=== PATIENT | female | born 1990 | race Caucasian/White ===

== ENCOUNTER 2017-04-21 14:07 | Emergency (ER) | payer MEDICAID ==
[~2017-04-21] VITALS: Ht 162.6 cm; Wt 57.8 kg
[2017-04-21 14:08] VITALS: BP 104/65
== END 2017-04-21 14:33 | disposition home or self-care (01) ==
LOC: ED 14:32
DX: K08.89 Other specified disorders of teeth and supporting structures (principal)
CPT/HCPCS: 99283

== ENCOUNTER 2020-05-23 17:55 | Emergency (ER) | payer MEDICAID ==
[~2020-05-23] VITALS: Ht 162.6 cm; Wt 53.7 kg
[2020-05-23] MEDS ORDERED: AMOXICILLIN 500 MG CAPSULE ONE (19:07)
[2020-05-23] MEDS ORDERED: KETOROLAC 30 MG/1 ML ONE (19:08)
[2020-05-23] MEDS ORDERED: HYDROcodone/APAP 5/325 TABLET ONE (19:08)
--- NOTE | 2020-05-23 19:17 | NUR ---
PT MEDICATED PER ERP ORDER FOR 10 DENTAL PAIN. BP CUFF, PULSE OX IN PLACE, CALL LIGHT WITHIN REACH, WARM BLANKET PROVIDED.
[2020-05-23] MEDS ORDERED: KETOROLAC 30 MG/1 ML IM ONE (19:30)
[2020-05-23] MEDS ORDERED: HYDROcodone/APAP 5/325 TABLET PO ONE (19:30)
[2020-05-23] MEDS ORDERED: AMOXICILLIN 500 MG CAPSULE PO ONE (19:30)
[2020-05-23 19:49] VITALS: BP 122/61
== END 2020-05-23 19:51 | disposition home or self-care (01) ==
LOC: ED 19:29
DX: K04.7 Periapical abscess without sinus (principal)
CPT/HCPCS: 96372; 99283; J1885

== ENCOUNTER 2020-05-24 04:32 | Emergency (ER) | payer MEDICAID ==
[~2020-05-24] VITALS: Ht 162.6 cm; Wt 54.0 kg
--- NOTE | 2020-05-24 05:17 | NUR ---
pt states that she was here yesterday for left sided dental pain. States "i was given a shot and it was supposed to help for a few days but it isnt and i woke up a bunch last night." pt nad, vss, gross neuro intact. waiting for erp eval. placd on spo2/bp monitoring, wctm.
[2020-05-24] MEDS ORDERED: KETOROLAC 60 MG/2 ML ONE (05:21)
[2020-05-24] MEDS ORDERED: ONDANSETRON ODT 4 MG ONE (05:21)
[2020-05-24] MEDS ORDERED: OXYcodone/APAP 10/325MG TABLET ONE (05:22)
[2020-05-24 05:26] VITALS: BP 102/48
--- NOTE | 2020-05-24 05:26 | NUR ---
pt medicated per dec for pain, tolerated well. laying on preet. lashaun, tk.
[2020-05-24] MEDS ORDERED: KETOROLAC 30 MG/1 ML IM ONE (05:30)
[2020-05-24] MEDS ORDERED: OXYcodone/APAP 10/325MG TABLET PO ONE (05:30)
[2020-05-24] MEDS ORDERED: ONDANSETRON ODT 4 MG PO ONE (05:30)
--- NOTE | 2020-05-24 06:03 | NUR ---
Patient given discharge instructions and they have confirmed that they understand the instructions. Patient ambulatory with steady gait. NAD, DENIES ADDITIONAL QUESTIONS OR NEEDS, STATES PAIN IS DECREASED AFTER MEDICATIONS.
== END 2020-05-24 06:04 | disposition home or self-care (01) ==
LOC: ED 05:29
DX: K08.89 Other specified disorders of teeth and supporting structures (principal)
CPT/HCPCS: 96372; 99283; J1885; Q0162

== ENCOUNTER 2020-07-30 19:11 | Emergency (ER) | payer MEDICAID ==
[~2020-07-30] VITALS: Ht 162.6 cm; Wt 55.8 kg
[2020-07-30 19:26] VITALS: BP 113/73
--- NOTE | 2020-07-30 19:39 | NUR ---
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
[2020-07-30] MEDS ORDERED: LIDOCAINE-MPF 1%, 2ML ONE (20:10)
[2020-07-30] MEDS ORDERED: BUPIVACAINE 0.25% ONE (20:10)
[2020-07-30] MEDS ORDERED: LIDOCAINE 1%, 2ML INFIL ONE (20:30)
[2020-07-30] MEDS ORDERED: BUPIVACAINE 0.25% INFIL ONE (20:30)
== END 2020-07-30 20:30 ==
LOC: ED 20:24
DX: K02.9 Dental caries, unspecified (principal); F17.210 Nicotine dependence, cigarettes, uncomplicated; F12.10 Cannabis abuse, uncomplicated; Z72.9 Problem related to lifestyle, unspecified
CPT/HCPCS: 64400; 99284; 99406

== ENCOUNTER 2020-10-19 06:30 | Emergency (ER) | payer MEDICAID ==
[~2020-10-19] VITALS: Ht 162.6 cm; Wt 55.8 kg
[2020-10-19 06:34] VITALS: BP 118/72
--- NOTE | 2020-10-19 07:05 | NUR ---
PT TO ROOM FROM LOBBY, GAIT STEADY
[2020-10-19] MEDS ORDERED: KETOROLAC 30 MG/1 ML ONE (07:14)
[2020-10-19] MEDS ORDERED: ONDANSETRON ODT 4 MG ONE (07:20)
[2020-10-19] MEDS ORDERED: ONDANSETRON ODT 4 MG PO ONE (07:30)
[2020-10-19] MEDS ORDERED: KETOROLAC 30 MG/1 ML IM ONE (07:30)
--- NOTE | 2020-10-19 07:32 | NUR ---
PT DENIES PAIN, N/V AT THIS TIME. NO IV TO DC, REVIEWED DC INSTRUCTIONS WITH PT, UNDERSTANDING VERBALIZED. PT HAS DENTAL APPT, NEXT MONTH. PT LEFT AMB, GAIT STEADY.
== END 2020-10-19 07:35 | disposition home or self-care (01) ==
LOC: ED 07:33
DX: K08.89 Other specified disorders of teeth and supporting structures (principal)
CPT/HCPCS: 96372; 99283; J1885; Q0162

== ENCOUNTER 2021-02-27 18:46 | Emergency (ER) | payer MEDICAID ==
[~2021-02-27] VITALS: Ht 162.6 cm; Wt 56.0 kg
[2021-02-27 18:58] VITALS: BP 108/61
--- NOTE | 2021-02-27 20:26 | NUR ---
NIL X 2 2025
--- NOTE | 2021-02-27 20:45 | NUR ---
[id number]
== END 2021-02-27 20:47 | disposition left against medical advice (07) ==
LOC: ED 19:00
DX: M54.9 Dorsalgia, unspecified (principal); R50.9 Fever, unspecified; Z53.21 Procedure and treatment not carried out due to patient leaving prior to being seen by health care provider